=== PATIENT | male | born 1985 | race Caucasian/White ===

== ENCOUNTER → 2023-07-26 13:01 | Outpatient (REF) | payer MEDICAID, SELFPAY | LOC: WOUND 13:01 | PROVIDERS: ATTENDING PHYSICIAN Surgery; FAMILY PHYSICIAN Family Medicine | DX: L97.323 Non-pressure chronic ulcer of left ankle with necrosis of muscle (principal); S89.92XS Unspecified injury of left lower leg, sequela; X58.XXXS Exposure to other specified factors, sequela; V89.2XXS Person injured in unspecified motor-vehicle accident, traffic, sequela; Z72.0 Tobacco use | CPT/HCPCS: 11042; 99204; 99406 ==

== ENCOUNTER → 2023-08-02 13:14 | Outpatient (REF) | payer OTHER, SELFPAY | LOC: WOUND 13:14 | PROVIDERS: ATTENDING PHYSICIAN Surgery; FAMILY PHYSICIAN Family Medicine | DX: L97.323 Non-pressure chronic ulcer of left ankle with necrosis of muscle (principal); S89.92XA Unspecified injury of left lower leg, initial encounter; V89.2XXA Person injured in unspecified motor-vehicle accident, traffic, initial encounter; Z72.0 Tobacco use | CPT/HCPCS: 99212 ==

== ENCOUNTER → 2023-08-09 14:18 | Outpatient (REF) | payer OTHER, SELFPAY | LOC: WOUND 14:18 | PROVIDERS: ATTENDING PHYSICIAN Surgery; FAMILY PHYSICIAN Family Medicine | DX: L97.323 Non-pressure chronic ulcer of left ankle with necrosis of muscle (principal); S89.92XS Unspecified injury of left lower leg, sequela; V89.2XXS Person injured in unspecified motor-vehicle accident, traffic, sequela; Z72.0 Tobacco use | CPT/HCPCS: 11042 ==

== ENCOUNTER → 2023-08-16 14:50 | Outpatient (REF) | payer OTHER, SELFPAY | LOC: WOUND 14:50 | PROVIDERS: ATTENDING PHYSICIAN Surgery; FAMILY PHYSICIAN Family Medicine | DX: L97.323 Non-pressure chronic ulcer of left ankle with necrosis of muscle (principal); S89.92XS Unspecified injury of left lower leg, sequela; V89.2XXS Person injured in unspecified motor-vehicle accident, traffic, sequela; Z72.0 Tobacco use | CPT/HCPCS: 97597 ==

== ENCOUNTER → 2023-08-23 14:14 | Outpatient (REF) | payer OTHER, SELFPAY | LOC: WOUND 14:14 | PROVIDERS: ATTENDING PHYSICIAN Surgery; FAMILY PHYSICIAN Family Medicine | DX: L97.323 Non-pressure chronic ulcer of left ankle with necrosis of muscle (principal); S89.92XA Unspecified injury of left lower leg, initial encounter; V89.2XXA Person injured in unspecified motor-vehicle accident, traffic, initial encounter; Z72.0 Tobacco use | CPT/HCPCS: 99213 ==

== ENCOUNTER → 2023-08-30 14:08 | Outpatient (REF) | payer OTHER, SELFPAY | LOC: WOUND 14:08 | PROVIDERS: ATTENDING PHYSICIAN Surgery; FAMILY PHYSICIAN Family Medicine | DX: L97.323 Non-pressure chronic ulcer of left ankle with necrosis of muscle (principal); S89.92XA Unspecified injury of left lower leg, initial encounter; V89.2XXA Person injured in unspecified motor-vehicle accident, traffic, initial encounter; Z72.0 Tobacco use | CPT/HCPCS: 99213 ==

== ENCOUNTER → 2023-09-06 14:45 | Outpatient (REF) | payer OTHER, SELFPAY | LOC: WOUND 14:45 | PROVIDERS: ATTENDING PHYSICIAN Surgery; FAMILY PHYSICIAN Family Medicine | DX: L97.323 Non-pressure chronic ulcer of left ankle with necrosis of muscle (principal); S89.92XS Unspecified injury of left lower leg, sequela; L89.520 Pressure ulcer of left ankle, unstageable; V89.2XXS Person injured in unspecified motor-vehicle accident, traffic, sequela; Z72.0 Tobacco use | CPT/HCPCS: 11042; 99213 ==

== ENCOUNTER → 2023-09-16 11:53 | Outpatient (REF) | payer OTHER, SELFPAY | LOC: PAVMRI 11:53 | PROVIDERS: FAMILY PHYSICIAN Family Medicine | DX: S83.10 Unspecified subluxation and dislocation of knee (principal) | CPT/HCPCS: 73721 ==

== ENCOUNTER → 2023-09-20 14:16 | Outpatient (REF) | payer OTHER, SELFPAY | LOC: WOUND 14:16 | PROVIDERS: ATTENDING PHYSICIAN Surgery; FAMILY PHYSICIAN Family Medicine | DX: L97.323 Non-pressure chronic ulcer of left ankle with necrosis of muscle (principal); S89.92XS Unspecified injury of left lower leg, sequela; L89.520 Pressure ulcer of left ankle, unstageable; V89.2XXS Person injured in unspecified motor-vehicle accident, traffic, sequela; Z72.0 Tobacco use | CPT/HCPCS: 17250; 99213 ==

== ENCOUNTER → 2023-09-23 09:55 | Outpatient (REF) | payer OTHER, SELFPAY | LOC: HWRAD 09:55 | PROVIDERS: FAMILY PHYSICIAN Family Medicine | DX: S82.202A Unspecified fracture of shaft of left tibia, initial encounter for closed fracture (principal); S82.402A Unspecified fracture of shaft of left fibula, initial encounter for closed fracture | CPT/HCPCS: 73700 ==

== ENCOUNTER → 2023-10-04 14:26 | Outpatient (REF) | payer OTHER, SELFPAY | LOC: WOUND 14:26 | PROVIDERS: ATTENDING PHYSICIAN Surgery; FAMILY PHYSICIAN Family Medicine | DX: L97.323 Non-pressure chronic ulcer of left ankle with necrosis of muscle (principal); S89.92XA Unspecified injury of left lower leg, initial encounter; L89.520 Pressure ulcer of left ankle, unstageable; V89.2XXA Person injured in unspecified motor-vehicle accident, traffic, initial encounter; Z72.0 Tobacco use | CPT/HCPCS: 17250; 99213 ==

== ENCOUNTER → 2023-10-11 13:45 | Outpatient (REF) | payer OTHER, SELFPAY | LOC: WOUND 13:45 | PROVIDERS: ATTENDING PHYSICIAN Surgery; FAMILY PHYSICIAN Family Medicine | DX: L97.323 Non-pressure chronic ulcer of left ankle with necrosis of muscle (principal); L89.520 Pressure ulcer of left ankle, unstageable; V89.2XXA Person injured in unspecified motor-vehicle accident, traffic, initial encounter; Z72.0 Tobacco use; S89.92XA Unspecified injury of left lower leg, initial encounter | CPT/HCPCS: 17250; 99213 ==

== ENCOUNTER 2023-10-20 22:05 | Emergency (ER) | payer OTHER, SELFPAY ==
[2023-10-20 22:10] VITALS: BP 187/122
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
[2023-10-21 00:24] VITALS: BP 170/84
== END 2023-10-21 00:26 | disposition home or self-care (01) ==
LOC: EMR 22:05
PROVIDERS: EMERGENCY PHYSICIAN Student in an Organized Health Care Education/Training Program; FAMILY PHYSICIAN Family Medicine
DX: T81.30XA Disruption of wound, unspecified, initial encounter (principal); Y83.8 Other surgical procedures as the cause of abnormal reaction of the patient, or of later complication, without mention of misadventure at the time of the procedure; K21.9 Gastro-esophageal reflux disease without esophagitis; F41.9 Anxiety disorder, unspecified; F17.200 Nicotine dependence, unspecified, uncomplicated
CPT/HCPCS: 99281

== ENCOUNTER → 2023-10-25 13:45 | Outpatient (REF) | payer OTHER, SELFPAY | LOC: WOUND 13:45 | PROVIDERS: ATTENDING PHYSICIAN Surgery; FAMILY PHYSICIAN Family Medicine | DX: L97.323 Non-pressure chronic ulcer of left ankle with necrosis of muscle (principal); S89.92XA Unspecified injury of left lower leg, initial encounter; L89.520 Pressure ulcer of left ankle, unstageable; V89.2XXA Person injured in unspecified motor-vehicle accident, traffic, initial encounter; Z72.0 Tobacco use | CPT/HCPCS: 99214 ==

== ENCOUNTER → 2023-10-25 14:37 | Outpatient (REF) | payer OTHER, SELFPAY | LOC: RAD 14:37 | PROVIDERS: ATTENDING PHYSICIAN Surgery | DX: L97.323 Non-pressure chronic ulcer of left ankle with necrosis of muscle (principal); S89.92XS Unspecified injury of left lower leg, sequela | CPT/HCPCS: 73610 ==

== ENCOUNTER 2023-10-27 15:21 | Inpatient (IN) | payer OTHER, SELFPAY ==
[2023-10-27 10:41] VITALS: BP 164/115
[2023-10-27 11:52] LABS: % Basophils 0.6 % (0-2); % Immature Granulocytes 0.5 % (0-0.5); % Lymphocytes 19.6 % (20.5-51.1); % Monocytes 6.7 % (1.7-9.3); % Neutrophils 70.6 % (42.2-75.2); Absolute Basophils 0.1 10^3/uL (0-0.2); Absolute Eosinophils 0.2 10^3/uL (0-0.7); Absolute Lymphocytes 1.7 10^3/uL (1.2-3.4); Absolute Monocytes 0.6 10^3/uL (0.1-0.6); Absolute Neutrophils 6.1 10^3/uL (1.4-6.5); Hematocrit 30.9 % (39.0-52.0); Hemoglobin 9.9 g/dL (13.0-18.0); Mean Corpuscular Hgb 24.1 pg (27.0-31.0); Mean Corpuscular Volume 75.2 fL (80.0-94.0); Mean Platelet Volume 8.9 fL (7.4-10.4); Nucleated Red Blood Cells % 0 % (-); Platelet Count 386 10^3/uL (130-400); Red Blood Cell Count 4.11 10^6/uL (4.70-6.10); Red Cell Dist. Width 15.9 % (11.5-14.5); White Blood Cell Count 8.7 10^3/uL (4.8-10.8)
[2023-10-27 11:53] LABS: Lactic Acid 1.6 mmol/L (0.7-2.0)
[2023-10-27 11:55] LABS: ALT (SGPT) 13 U/L (0-50); AST (SGOT) 16 U/L (17-59); Albumin 3.9 g/dl (3.5-5.0); Alkaline Phosphatase 67 U/L (38-126); Blood Urea Nitrogen 16 mg/dl (9-20); Calcium 9.4 mg/dl (8.4-10.2); Carbon Dioxide 27 mmol/L (22-30); Chloride 99 mmol/L (98-107); Glucose 98 mg/dl (70-99); Potassium 3.7 mmol/L (3.5-5.1); Sodium 136 mmol/L (135-145); Total Bilirubin 1.1 mg/dl (0.2-1.3); Total Protein 7.5 g/dl (6.3-8.2); eGFR 59.98
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
[2023-10-27 14:15] VITALS: BP 155/96
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
[2023-10-27] MEDS: TYLENOL 650 MG PO (15:34)
[2023-10-27 16:29] VITALS: BMI 40.4
[2023-10-27 16:35] VITALS: BP 159/115
[2023-10-27 18:15] LABS: Urine Albumin 3+ (Neg - Trace); Urine Bilirubin 1+ (Negative); Urine Character Very Cloudy (Clear); Urine Color Brown; Urine Glucose Negative (Negative); Urine Ketone Negative (Negative); Urine Leukocyte Trace (Negative); Urine Nitrite Positive (Negative); Urine Occult Blood 4+ (Negative); Urine Urobilinogen Negative (Neg - 1+)
[2023-10-27 18:28] LABS: Urine Red Blood Cell 26-30 /HPF (0-2); Urine Yeast Many (Negative)
[2023-10-27 18:29] LABS: Urine Bacteria Moderate (Negative)
[2023-10-27] MEDS: HEPARIN 5000 UNITS SC (19:39)
[2023-10-27] MEDS: NEURONTIN 100 MG PO (19:39)
[2023-10-27] MEDS: ULTRAM 50 MG PO (19:45)
[2023-10-27 23:39] VITALS: BP 158/102
[2023-10-28] MEDS: TYLENOL 650 MG PO ×3 (00:07→18:31)
[2023-10-28] MEDS: PEPCID 20 MG PO ×2 (00:19→07:31)
[2023-10-28] MEDS: NEURONTIN 100 MG PO ×2 (07:30→19:59)
[2023-10-28] MEDS: ULTRAM 50 MG PO ×3 (07:30→22:48)
[2023-10-28] MEDS: HEPARIN 5000 UNITS SC ×2 (07:31→19:59)
[2023-10-28 07:47] VITALS: BP 160/110
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
[2023-10-28 15:25] VITALS: BP 150/99
--- NOTE | 2023-10-28 16:07 | PN.CDI ---
CDI
- -
CDI:
Physician Documentation Request
Admit Date: 10/27/23 15:21
Dear Doctor Talib,
Please review the following and provide your response in the progress notes.
Clinical Indicators:
Pt admitted with osteomyelitis/cellulitis left ankle.
BMI:40.4
10/27 Stephen Dietitian note: 'Chart reviewed due to pt with BMI > 40 morbidly obese range..'
If possible, please provide an associated diagnosis related to the abnormal BMI, such as:
BMI > or = to 40
Overweight
Obesity:
Due to excess calories
Drug induced
Due to other cause
Severe or morbid obesity:
With alveolar hypoventilation (Obesity hypoventilation syndrome)
Without alveolar hypoventilation
BMI is not significant
Other
Use of terms such as suspected, likely, concern for, or probable (associated with a specific diagnosis that is being evaluated, monitored, or treated as if it exists) are acceptable and can be coded in the inpatient setting, when documented at the
time of discharge.
Thank you,
Juliana Salvador RN, BSN
CDI Specialist
Available via [employer]
Please use your independent medical judgment in providing your response.
--- NOTE | 2023-10-28 17:01 | CM ---
Reviewed chart, met with patient to obtain information for assessment. Patient stated that he lives with his brother who was at bedside, in a two story townhouse with two steps to enter. Patient described himself as in need of assistance with
dressing, supervision for bathing, independent with personal care and toileting and uses a walker to assist with his ambulation.
Patient's brother takes care of all of the tour driver, cooking, cleaning and laundry. He drives patient along with patient's sister in law, and father to all of his appointments and takes him shopping.
Patient has not had VN services.
He has not been to a SNF.
If indicated, he would be agreeable to VN through at time of discharge.
Plan: Case management will continue to follow and assist with discharge planning. Home with VN if indicated.
[2023-10-28 23:00] VITALS: BP 160/106
[2023-10-29] MEDS: ULTRAM 50 MG PO ×3 (06:32→19:45)
[2023-10-29 07:02] VITALS: BP 167/103
[2023-10-29] MEDS: HEPARIN 5000 UNITS SC ×2 (08:40→19:43)
[2023-10-29] MEDS: NEURONTIN 100 MG PO ×2 (08:40→19:44)
[2023-10-29] MEDS: PEPCID PO (08:57)
[2023-10-29] MEDS: TYLENOL 650 MG PO ×3 (09:07→23:26)
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
[2023-10-29] MEDS: NORVASC 5 MG PO (12:34)
[2023-10-29 15:00] VITALS: BP 156/100
[2023-10-29] MEDS: XYLOCAINE 2% MDV 20 ML INJ (15:43)
[2023-10-29 17:00] LABS: Body Fluid Granulocytes 96 %; Body Fluid Lymphocytes 4 %; Body Fluid Second Tech RLT
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
[2023-10-29] MEDS: PEPCID 20 MG PO (19:44)
[2023-10-29 23:24] VITALS: BP 154/107
[2023-10-30 07:00] VITALS: BP 155/108
[2023-10-30] MEDS: TYLENOL 650 MG PO (07:54)
[2023-10-30] MEDS: HEPARIN 5000 UNITS SC ×2 (07:55→20:18)
[2023-10-30] MEDS: NEURONTIN 100 MG PO ×2 (07:55→20:18)
[2023-10-30] MEDS: NORVASC 5 MG PO (07:55)
[2023-10-30] MEDS: COLCHICINE 1.19999999999999996 MG PO (10:10)
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
[2023-10-30] MEDS: COLCHICINE 0.599999999999999978 MG PO (11:13)
[2023-10-30 11:48] LABS: Hematocrit 30.8 % (39.0-52.0); Hemoglobin 10.1 g/dL (13.0-18.0); Mean Corp Hgb Conc. 32.8 g/dL (33.0-37.0); Mean Corpuscular Hgb 24.6 pg (27.0-31.0); Mean Corpuscular Volume 75.1 fL (80.0-94.0); Mean Platelet Volume 8.9 fL (7.4-10.4); Platelet Count 363 10^3/uL (130-400); Red Cell Dist. Width 15.9 % (11.5-14.5)
[2023-10-30 12:15] LABS: Blood Urea Nitrogen 19 mg/dl (9-20); Calcium 9.5 mg/dl (8.4-10.2); Carbon Dioxide 27 mmol/L (22-30); Chloride 100 mmol/L (98-107); Estimated Creatinine Clearance 80 ml/min; Glucose 115 mg/dl (70-99); Potassium 3.9 mmol/L (3.5-5.1); Sodium 135 mmol/L (135-145); eGFR > 60.00
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
[2023-10-30] MEDS: ULTRAM 50 MG PO ×2 (13:32→21:04)
[2023-10-30 14:31] VITALS: BP 161/108
[2023-10-30] MEDS: COMPAZINE 10 MG IV (14:32)
[2023-10-30] MEDS: PROCARDIA XL (EXTENDED RELEASE) 30 MG PO ×2 (14:32→20:05)
[2023-10-30 14:43] VITALS: BP 161/108
[2023-10-30 18:44] VITALS: BP 149/103
[2023-10-30] MEDS: PEPCID 20 MG PO (20:18)
[2023-10-30 22:45] VITALS: BP 133/90
[2023-10-31] MEDS: TYLENOL 650 MG PO ×2 (06:18→14:04)
[2023-10-31 06:49] LABS: Hematocrit 33.3 % (39.0-52.0); Hemoglobin 10.5 g/dL (13.0-18.0); Mean Corp Hgb Conc. 31.5 g/dL (33.0-37.0); Mean Corpuscular Hgb 24.5 pg (27.0-31.0); Mean Corpuscular Volume 77.8 fL (80.0-94.0); Platelet Count 367 10^3/uL (130-400); Red Blood Cell Count 4.28 10^6/uL (4.70-6.10); Red Cell Dist. Width 16.1 % (11.5-14.5); White Blood Cell Count 8.8 10^3/uL (4.8-10.8)
[2023-10-31 07:00] VITALS: BP 132/88
[2023-10-31 07:15] LABS: Blood Urea Nitrogen 18 mg/dl (9-20); Carbon Dioxide 26 mmol/L (22-30); Chloride 99 mmol/L (98-107); Estimated Creatinine Clearance 75 ml/min; Glucose 105 mg/dl (70-99); Potassium 3.9 mmol/L (3.5-5.1); Sodium 134 mmol/L (135-145); eGFR 59.98
[2023-10-31] MEDS: PROCARDIA XL (EXTENDED RELEASE) 30 MG PO (08:59)
[2023-10-31] MEDS: NEURONTIN 100 MG PO (08:59)
[2023-10-31] MEDS: COLCHICINE 0.599999999999999978 MG PO (08:59)
[2023-10-31] MEDS: HEPARIN 5000 UNITS SC (09:00)
[2023-10-31] MEDS: ULTRAM 50 MG PO (09:26)
--- NOTE | 2023-10-31 11:26 | WOUNDNOTE ---
L FOOT/ANKLE (LATERAL)(with photo flash)
--- NOTE | 2023-10-31 11:28 | WOUNDNOTE ---
L FOOT/ANKLE (dorsal)
--- NOTE | 2023-10-31 11:28 | WOUNDNOTE ---
L FOOT/ANKLE (LATERAL)
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
--- NOTE | 2023-10-31 13:20 | WOUNDNOTE ---
WOC RN note: Confirmed wound care with Dr. Blood and Dr. Johnson. Discharge instructions updated.
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
[2023-10-31 14:14] VITALS: BP 132/86
--- NOTE | 2023-11-01 16:12 | W.PN.UPDATE ---
Update Note
Progress Note Update
Pt discharged yesterday. Micro called about Staph aureus growing from ankle cx. Sensitivity pending. I called and spoke to patient. He states foot pain is stable, not as severe while on colchicine. The ankle cx result is questionable as there was
no drop of fluid in submitted syringe; syringe was rinsed for subculture. I recommend he sees the Orthopedist tomorrow first. Again, to establish definitive diagnosis of osteo is bone biopsy/deep culture. Await ortho eval and to fax me report. If
no intervention planned will try to set up outpt IV abx. Patient understands plan. He will keep me updated.
== END 2023-10-31 14:16 | disposition home health service (06) | DRG 554 ==
LOC: 3 WEST ACU 15:21
PROVIDERS: Hospitalist; ADMITTING PHYSICIAN Internal Medicine; ATTENDING PHYSICIAN Hospitalist; CONSULT PHYSICIAN Podiatrist Foot & Ankle Surgery; EMERGENCY PHYSICIAN Emergency Medicine; FAMILY PHYSICIAN Family Medicine; OTHER PHYSICIAN Internal Medicine Infectious Disease
PROC: 0S9G3ZX Drainage of Left Ankle Joint, Percutaneous Approach, Diagnostic (ICD-10-PCS; 2023-10-29)
DX: M10.072 Idiopathic gout, left ankle and foot (principal); L03.116 Cellulitis of left lower limb; Z68.41 Body mass index [BMI] 40.0-44.9, adult; T81.30XA Disruption of wound, unspecified, initial encounter; I10 Essential (primary) hypertension; E66.01 Morbid (severe) obesity due to excess calories; M60.9 Myositis, unspecified; M25.472 Effusion, left ankle; M81.8 Other osteoporosis without current pathological fracture; K21.9 Gastro-esophageal reflux disease without esophagitis; Z79.82 Long term (current) use of aspirin; Z79.899 Other long term (current) drug therapy
CPT/HCPCS: 73723; 80048; 80053; 81003; 81015; 83605; 85025; 85027; 87015; 87040; 87070; 87147; 87205; 89051; 89060; 93005; 99285; 99406; A9575

== ENCOUNTER → 2023-12-12 10:57 | Outpatient (REF) | payer OTHER, SELFPAY | LOC: DHCBC/DCA 10:57 | PROVIDERS: ATTENDING PHYSICIAN Internal Medicine Interventional Cardiology; FAMILY PHYSICIAN Family Medicine | DX: R06.02 Shortness of breath (principal); R00.2 Palpitations; R42 Dizziness and giddiness | CPT/HCPCS: 78452; 93017; A9500; J2785 ==

== ENCOUNTER → 2023-12-14 15:45 | Outpatient (REF) | payer OTHER, SELFPAY | LOC: HWRCS 15:45 | PROVIDERS: ATTENDING PHYSICIAN Internal Medicine Interventional Cardiology; FAMILY PHYSICIAN Family Medicine | DX: R06.02 Shortness of breath (principal); R00.2 Palpitations; R42 Dizziness and giddiness | CPT/HCPCS: 93306 ==

== ENCOUNTER → 2024-02-27 09:35 | Outpatient (REF) | payer OTHER, SELFPAY | LOC: RAD 09:35 | PROVIDERS: ATTENDING PHYSICIAN Internal Medicine Interventional Cardiology; FAMILY PHYSICIAN Family Medicine | DX: R94.39 Abnormal result of other cardiovascular function study (principal); R00.2 Palpitations | CPT/HCPCS: 75574; Q9967 ==

== ENCOUNTER → 2024-06-18 11:44 | Outpatient (REF) | payer OTHER, SELFPAY | LOC: DHSLP 11:44 | PROVIDERS: ATTENDING PHYSICIAN Family Medicine | DX: G47.33 Obstructive sleep apnea (adult) (pediatric) (principal); G47.00 Insomnia, unspecified | CPT/HCPCS: 95810 ==